=== PATIENT | male | born 1960 | race African-American/Black ===

== ENCOUNTER 2020-07-13 05:28 | Emergency (ER) | payer MEDICAID ==
[~2020-07-13] VITALS: Ht 182.9 cm; Wt 92.0 kg
[2020-07-13] MEDS ORDERED: TETANUS, DIPHTHERIA, PERTUSSIS VAC/PF 0.5ML (>7YR OLD) IM ONE (06:15)
[2020-07-13] MEDS ORDERED: ACETAMINOPHEN 325MG TABLET PO ONE (06:15)
[2020-07-13] MEDS ORDERED: BACITRACIN ZINC OINT UDPKT TOP ONE (06:15)
[2020-07-13] MEDS ORDERED: BO1 TP (08:09)
[2020-07-13 09:18] VITALS: BP 162/84
== END 2020-07-13 09:26 | disposition home or self-care (01) ==
LOC: ER 05:28
DX: S00.81XA Abrasion of other part of head, initial encounter (principal); W18.39XA Other fall on same level, initial encounter; Y93.89 Activity, other specified; Y92.89 Other specified places as the place of occurrence of the external cause; Y99.8 Other external cause status; E11.9 Type 2 diabetes mellitus without complications
CPT/HCPCS: 12013; 90471; 90715; 99283